=== PATIENT | female | born 1975 | race Hispanic/Latino ===

== ENCOUNTER 2020-02-12 10:56 | Emergency (ER) | payer SELFPAY ==
[2020-02-12] MEDS ORDERED: CYCLOBENZAPRINE HCL 10 MG TABLET ONE (11:37)
[2020-02-12] MEDS ORDERED: IBUPROFEN 400 MG TABLET ONE (11:37)
== END 2020-02-12 12:26 | disposition home or self-care (01) ==
LOC: EDH 10:56
DX: M62.838 Other muscle spasm (principal)